=== PATIENT | female | born 1970 | race Caucasian/White ===

== ENCOUNTER 2019-01-14 16:29 | Outpatient (REF) | payer OTHER, SELFPAY ==
[2019-01-14 17:06] LABS: Anion Gap 12.2 mmol/L (3-11); BUN 10 mg/dL (7-18); CO2 25.8 mmol/L (21.0-32.0); CREATININE 1.13 mg/dL (0.55-1.02); Calcium 9.2 mg/dL (8.5-10.1); Chloride 99 mmol/L (98-107); Estimated GFR 51.39 (mL/min/1.73m2); Glucose 271 mg/dL (70-100); Potassium 4.1 mmol/L (3.5-5.1); Sodium 137 mmol/L (136-145)
== END 2019-01-14 16:49 ==
LOC: NCHCN 16:29
PROVIDERS: PCP Internal Medicine; Visit Provider Family Medicine
DX: I10 Essential (primary) hypertension (principal); R73.09 Other abnormal glucose
CPT/HCPCS: 80048

== ENCOUNTER 2019-01-22 12:51 | Outpatient (REF) | payer OTHER, SELFPAY | END 2019-01-22 13:11 | LOC: NCHCN 12:51 | PROVIDERS: PCP Internal Medicine; Visit Provider Family Medicine | DX: R73.9 Hyperglycemia, unspecified (principal) | CPT/HCPCS: 83036 ==

== ENCOUNTER 2019-02-15 00:47 | Outpatient (CLI) | payer OTHER, SELFPAY ==
--- NOTE | 2019-02-15 08:17 | NS.NUTBLAN_ITS ---
DESCRIPTION/ASSESSMENT:? Buffy King presents with newly diagnosed type 2 diabetes with focus on nutrition and prevention.? ?? She manages diabetes with 20u Lantus and Metformin. She plans to get off the insulin when blood sugars are well controlled.? She also takes HCTZ for hypertension.?? Buffy is eating an Atkins like food plan; eats egg, sausage and cheese with coffee and cream for breakfast; deli meat, cheese, avocado?and nuts for lunch; Atkins dinners or faux fried rice made from cauliflower, pork, lay sprouts.? SHe is eating no carbohydrate at this time. ?She has lost 15 pounds.? She does plan to add in fruit at some point. Buffy is physically active, loves to swim and bike.? She denies stress or poor sleep. Buffy is motivated to maintain her changes to manage her diabetes and feels she has the resources to do this. INTERVENTION:? Buffy has already made the changes to manage her blood sugars with food choices.? Reviewed diabetes food guide for if/when this current plan becomes unsustainable.? Discussed hunger/fullness. Discussed benefits of physical activity.? Discussed prevention i.e. foot care briefly and she is aware.? Discussed strategies for stress management. PLAN:? Buffy will continue her current food plan; medication and monitoring of blood sugars. She will be in touch as desired and has the contact information for self management support..
== END 2019-02-15 01:07 ==
PROVIDERS: PCP Family Medicine; Visit Provider Dietitian, Registered
DX: E11.9 Type 2 diabetes mellitus without complications (principal); Z71.3 Dietary counseling and surveillance
CPT/HCPCS: 97802

== ENCOUNTER 2019-02-27 09:18 | Outpatient (REF) | payer OTHER, SELFPAY ==
[2019-02-27 13:55] LABS: Anion Gap 9.7 mmol/L (3-11); BUN 17 mg/dL (7-18); CO2 29.3 mmol/L (21.0-32.0); CREATININE 1.04 mg/dL (0.55-1.02); Calcium 9.6 mg/dL (8.5-10.1); Chloride 101 mmol/L (98-107); Estimated GFR 56.56 (mL/min/1.73m2); Glucose 134 mg/dL (70-100); Potassium 4.1 mmol/L (3.5-5.1); Sodium 140 mmol/L (136-145)
== END 2019-02-27 09:38 ==
LOC: NCHCN 09:18
PROVIDERS: PCP Family Medicine; Visit Provider Family Medicine
DX: I10 Essential (primary) hypertension (principal); N28.9 Disorder of kidney and ureter, unspecified
CPT/HCPCS: 80048

== ENCOUNTER 2019-03-13 01:27 | Outpatient (CLI) | payer OTHER, SELFPAY ==
--- NOTE | 2019-03-13 07:50 | DI.MAMMO_ITS ---
EXAM: MAMMO SCREENING CLINICAL HISTORY: SCREENING, Z12.39 TECHNIQUE: Mammograms were interpreted according to the usual protocol including computer analysis w [employer] CAD system, tomosynthesis and C-view imaging. FINDINGS: The breasts are of moderate density with fairly symmetrical distribution of fibroglandular tissue. N o dominant mass or clumped microcalcification is identified in either breast. Today's examination is a baseline examination. IMPRESSION: No specific evidence of malignancy at this time. Routine screening examinations are suggested at yea rly intervals in this age group according to the ACS/ACR guidelines. Category 1, breast density categ ory B. BI-RADS Cat 1 - Negative Breast Density - Category B - Scattered areas of fibroglandular density
== END 2019-03-13 01:47 ==
PROVIDERS: PCP Family Medicine; Visit Provider Family Medicine
DX: Z12.31 Encounter for screening mammogram for malignant neoplasm of breast (principal)
CPT/HCPCS: 77063; 77067

== ENCOUNTER 2019-10-20 11:40 | Emergency (ER) | payer OTHER, SELFPAY ==
[2019-10-20 11:54] VITALS: BP 161/95; PULSE 71; RESP 18; TEMP 36.6; O2SAT 97
--- NOTE | 2019-10-20 12:18 | ED.GENADUL_ITS ---
Discharge Plan Disposition Patient Disposition: HOME Condition: Stable Discharge Details Chief Complaint: Nk/Back Pain Clinical Impression: Lumbago Primary Care Provider: Med Hlae ED Provider: Javier Kaur Home Meds and New Rx's Prescriptions: New methocarbamol 500 mg tablet 500 mg PO Q6H PRN (Reason: Back pain or spasm) Qty: 14 RF: 0 prednisone 20 mg tablet 40 mg PO DAILY 5 Days Qty: 10 RF: 0 Continued naproxen 250 mg Tablet 440 mg PO BID PRNRF: 0 metformin 1,000 mg Tablet Extended Release 24hr 1,000 mg PO DAILY RF: 0 valsartan-hydrochlorothiazide 320-25 mg Tablet 0.5 tab PO DAILY RF: 0 Discharge Instructions Instructions: Low Back Strain (ED) Additional Instructions: Remove Lidoderm patch in 12 hours time. Additional patches are available [id number]. Take prednisone as prescribed, next dose will be tomorrow. You may continue your prescribed naproxen and may also use Tylenol/acetaminophen as needed for pain. Methocarbamol as needed for breakthrough muscular pain. Return for weakness of the legs, urine incontinence, or any other acute concerns. Follow-up with regular doctor if not improving in 5 to 7 days time. Medical Decision Making Pleasant 49-year-old female presents with low back pain that began Monday while bending over to a shopping cart. Now radiates at times down the buttocks and both legs. No change to urine continence. No numbness, tingling, or weakness. Somewhat improved with ibuprofen at home. Her neuromotor examination is unremarkable. This is most consistent with sciatica and possibly a lower lumbar disc bulge. Discussed with her home management including the prescribed use of a burst of prednisone, methocarbamol as needed, Lidoderm patches, ongoing use of [id number] medications. She deferred a referral to physical therapy. She understands return precautions to the ER for recheck. She is stable at this time. HPI General Mode of arrival: ambulatory . Date/Time Provider Initiated Documentation: 10/20/19 11:43 . Limitations to Documentation: no limitations . Information obtained by: patient . History of Present Illness 49 year old F presents to the emergency department with the chief complaint of Low back pain since Monday. No change to urine, no weakness or numbness of, described as moderate, Quality is described as constant, and is localized to the back. Patient extremity. Patient started experiencing this day(s) and it has been constant. Rest improves symptom(s), Movement worsens symptoms . Patient notes no other symptoms.; denies fever/chills, loss of appetite, syncope and weakness. Patient did receive the following treatments prior to arrival, NSAID Related Data Home Medications Medication Instructions Recorded Confirmed metformin 1,000 mg PO DAILY 10/20/19 10/20/19 methocarbamol 500 mg PO Q6H PRN #14 tab 10/20/19 naproxen 440 mg PO BID PRN 10/20/19 10/20/19 prednisone 40 mg PO DAILY 5 Days #10 tab 10/20/19 valsartan-hydrochlorothiazide 0.5 tab PO DAILY 10/20/19 10/20/19 Previous Rx's Medication Instructions Recorded methocarbamol 500 mg PO Q6H PRN #14 tab 10/20/19 prednisone 40 mg PO DAILY 5 Days #10 tab 10/20/19 Allergies Allergy/AdvReac Type Severity Reaction Status Date / Time No Known Allergies Allergy Unverified 10/20/19 12:01 General Stated Complaint: Nk/Back Pain KANNAN: 3 Review of Systems Narrative: 6 systems reviewed and otherwise negative [facility] Medical History Anemia 01/2013 Hgb 11.3, MCV 79.3. 06/2013 after iron supplementation Hgb 11.7, MCV 84. Nl TIBC and Ferritin levels. Hyperlipidemia Kidney stone Obesity Premenopausal menorrhagia light regular menses until 10/2012 then regular but heavy. Nl EMBx and Nl SHG. Expectant management. Family History Mother Diabetes Social History Smoking/Tobacco Use Status: Former Tobacco Use Alcohol Intake: current Alcohol Intake frequency: 0-2 drinks per day Drug use: Never Substance use type: does not use Do you feel safe at home: Yes Do you feel safe in your relationship?: Yes Exam Narrative Exam Narrative: GEN: awake, alert, oriented 3. Pleasant, well groomed, interactive. HEAD: Normocephalic, atraumatic ENT: Mucous membranes moist, oropharynx unremarkable, External ear exam unremarkable EYES: PERRL, EOMI NECK: Full ROM, no ARIANE, no menigismus CHEST/RESP: Nontender, clear to auscultation bilateral, no wheeze/rhonchi/rales CARDIOVASCULAR: RRR, no murmur, rub chucky. 2+ Rad pulse bilateral Back: Lower lumbar discrete tenderness without step-off or deformity. Minimal bilateral sciatic notch tenderness to palpation. EXT: Full ROM, no edema, no rash. Motor 5 out of 5. Plantar and dorsiflexion normal. Sensation intact throughout. Patellar reflex 1+ bilaterally. Neuro: Grossly normal neurologic exam, conversant, interactive. Psych: Speech fluent, thoughts congruent, affect normal Course Vital Signs Vital signs: Vital Signs Temperature 36.6 C 10/20/19 11:54 Pulse 71 10/20/19 11:54 Respiratory Rate 18 10/20/19 11:54 Blood Pressure 161/95 H 10/20/19 11:54 Pulse Oximetry 97 10/20/19 11:54 Temperature 36.6 C 10/20/19 11:54 Temperature Source Temporal Artery Scan 10/20/19 11:54 Pulse 71 10/20/19 11:54 Respiratory Rate 18 10/20/19 11:54 Respiratory Effort Non-Labored 10/20/19 12:06 Blood Pressure 161/95 H 10/20/19 11:54 Blood Pressure Position Sitting 10/20/19 11:54 Pulse Oximetry 97 10/20/19 11:54 Oxygen Delivery Method Room Air 10/20/19 11:54 Oxygen Flow Rate 0 10/20/19 11:54 Pain Level 5 10/20/19 11:54
[2019-10-20] MEDS: Lidocaine 5% Patch 1 PATCH TP (12:30)
[2019-10-20] MEDS: predniSONE 20 MG TAB 60 MG PO (12:30)
== END 2019-10-20 12:40 | disposition home or self-care (01) ==
PROVIDERS: Emergency Provider Emergency Medicine; PCP Family Medicine
DX: M54.41 Lumbago with sciatica, right side (principal); M54.42 Lumbago with sciatica, left side
CPT/HCPCS: 99283; J7512

== ENCOUNTER 2020-02-19 21:25 | Outpatient (REF) | payer OTHER, SELFPAY ==
[2020-02-19 19:57] LABS: ALT 39 U/L (14-59); AST 29 U/L (15-37); Albumin 3.9 g/dL (3.4-5.0); Alkaline Phosphatase 80 U/L (46-116); BUN 25 mg/dL (7-18); Bilirubin, Total 0.4 mg/dL (0.2-1.0); CREATININE 1.38 mg/dL (0.55-1.02); Calcium 9.8 mg/dL (8.5-10.1); Calculated LDL 240 mg/dL (<100); Chloride 103 mmol/L (98-107); Cholesterol 338 mg/dL (<200); Estimated GFR 40.64 (mL/min/1.73m2); Glucose 147 mg/dL (74-106); HDL Cholesterol 54 mg/dL (40-60); Potassium 4.5 mmol/L (3.5-5.1); Sodium 140 mmol/L (136-145); Total Protein 7.6 g/dL (6.4-8.2); Triglyceride 220 mg/dL (<150)
== END 2020-02-19 21:45 ==
LOC: NCHCN 21:25
PROVIDERS: PCP Family Medicine; Visit Provider Family Medicine
DX: E11.9 Type 2 diabetes mellitus without complications (principal)
CPT/HCPCS: 80053; 80061

== ENCOUNTER 2020-06-04 13:37 | Outpatient (REF) | payer OTHER, SELFPAY ==
[2020-06-04 16:02] LABS: Anion Gap 10.9 mmol/L (3-11); BUN 24 mg/dL (7-18); CO2 26.1 mmol/L (21.0-32.0); CREATININE 1.2 mg/dL (0.55-1.02); Calcium 9.4 mg/dL (8.5-10.1); Calculated LDL 210 mg/dL (<100); Chloride 101 mmol/L (98-107); Cholesterol 316 mg/dL (<200); Estimated GFR 47.55 (mL/min/1.73m2); Glucose 148 mg/dL (74-106); HDL Cholesterol 52 mg/dL (40-60); Potassium 4.4 mmol/L (3.5-5.1); Sodium 138 mmol/L (136-145); Triglyceride 273 mg/dL (<150)
== END 2020-06-04 13:38 | disposition home or self-care (01) ==
LOC: NCHCN 13:37
PROVIDERS: PCP Family Medicine; Visit Provider Family Medicine
DX: E11.9 Type 2 diabetes mellitus without complications (principal); N28.9 Disorder of kidney and ureter, unspecified; E78.5 Hyperlipidemia, unspecified
CPT/HCPCS: 80048; 80061

== ENCOUNTER 2020-11-17 02:30 | Outpatient (CLI) | payer OTHER, SELFPAY ==
--- NOTE | 2020-11-17 | DI.MAMMO_ITS ---
Exam(s) MAMMO SCREENING EXAM: MAMMO SCREENING CLINICAL HISTORY: SCREENING, PREVENTIVE CARE EXAM, Z00.00 TECHNIQUE: Mammograms were interpreted according to the usual protocol including computer analysis w [employer] CAD system, tomosynthesis and C-view imaging. COMPARISON: FINDINGS: The breasts are of moderate density with fairly symmetrical distribution of fibroglandular tissue. N o dominant mass or clumped microcalcification is identified in either breast. The current examinatio n is compared with previous examination of February 2019 and there has been no gross interval change in appearance in comparison with the prior study. IMPRESSION: No specific evidence of malignancy at this time. Routine screening examinations are suggested at yea rly intervals in this age group according to the ACS ACR guidelines. BI-RADS Category 1 - Negative Breast Density - Category B - Scattered areas of fibroglandular density
== END 2020-11-17 02:50 ==
PROVIDERS: PCP Family Medicine; Visit Provider Family Medicine
DX: Z00.00 Encounter for general adult medical examination without abnormal findings (principal); Z12.31 Encounter for screening mammogram for malignant neoplasm of breast
CPT/HCPCS: 77063; 77067

== ENCOUNTER 2021-05-28 12:49 | Outpatient (REF) | payer OTHER, SELFPAY ==
[2021-05-28 15:10] LABS: Hemoglobin A1C 6.6 % (<5.7)
[2021-05-28 15:15] LABS: Anion Gap 8.1 mmol/L (3-11); BUN 15 mg/dL (7-18); CO2 27.9 mmol/L (21.0-32.0); CREATININE 1.1 mg/dL (0.55-1.02); Calcium 9.5 mg/dL (8.5-10.1); Calculated LDL 121 mg/dL (<100); Chloride 103 mmol/L (98-107); Cholesterol 206 mg/dL (<200); Estimated GFR 52.36 (mL/min/1.73m2); Glucose 183 mg/dL (74-106); HDL Cholesterol 49 mg/dL (40-60); Potassium 4.9 mmol/L (3.5-5.1); Sodium 139 mmol/L (136-145); Triglyceride 183 mg/dL (<150)
== END 2021-05-28 12:50 | disposition home or self-care (01) ==
LOC: NCHCN 12:49
PROVIDERS: PCP Family Medicine; Visit Provider Family Medicine
DX: E78.5 Hyperlipidemia, unspecified (principal); E11.9 Type 2 diabetes mellitus without complications
CPT/HCPCS: 80048; 80061; 83036

== ENCOUNTER 2021-11-24 16:45 | Outpatient (REF) | payer OTHER, SELFPAY ==
[2021-11-24 17:49] LABS: Anion Gap 11.9 mmol/L (3-11); BUN 31 mg/dL (7-18); CO2 26.1 mmol/L (21.0-32.0); CREATININE 1.5 mg/dL (0.55-1.02); Calcium 9.4 mg/dL (8.5-10.1); Chloride 102 mmol/L (98-107); Estimated GFR 36.61 (mL/min/1.73m2); Glucose 184 mg/dL (74-106); Potassium 4.7 mmol/L (3.5-5.1); Sodium 140 mmol/L (136-145); Vitamin B12 258 pg/mL (193-986)
== END 2021-11-24 16:46 | disposition home or self-care (01) ==
LOC: NCHCN 16:45
PROVIDERS: PCP Family Medicine; Visit Provider Family Medicine
DX: R20.2 Paresthesia of skin (principal)
CPT/HCPCS: 80048; 82607; 83735

== ENCOUNTER 2021-12-10 18:48 | Outpatient (REF) | payer OTHER, SELFPAY ==
[2021-12-10 17:38] LABS: COMMENT (LAB VIEW ONLY) 244.42 mg/dL; PROTEIN 29.9 mg/dL; Prot/Crea Ur Ratio 0.12
== END 2021-12-10 18:49 | disposition home or self-care (01) ==
LOC: NCHCN 18:48
PROVIDERS: PCP Family Medicine; Visit Provider Family Medicine
DX: N28.9 Disorder of kidney and ureter, unspecified (principal)
CPT/HCPCS: 82565; 84156

== ENCOUNTER 2022-06-08 11:27 | Outpatient (REF) | payer OTHER, SELFPAY ==
[2022-06-08 15:06] LABS: Anion Gap 6.6 mmol/L (3-11); BUN 17 mg/dL (7-18); CO2 30.4 mmol/L (21.0-32.0); CREATININE 1.3 mg/dL (0.55-1.02); Calcium 9.9 mg/dL (8.5-10.1); Chloride 97 mmol/L (98-107); Estimated GFR 49.48 (mL/min/1.73m2); Glucose 268 mg/dL (74-106); Potassium 4.3 mmol/L (3.5-5.1); Sodium 134 mmol/L (136-145)
== END 2022-06-08 11:28 | disposition home or self-care (01) ==
LOC: NCHCN 11:27
PROVIDERS: PCP Family Medicine; Visit Provider Family Medicine
DX: N28.9 Disorder of kidney and ureter, unspecified (principal)
CPT/HCPCS: 80048

== ENCOUNTER 2022-12-08 10:15 | Outpatient (REF) | payer OTHER, SELFPAY ==
--- NOTE | 2022-12-08 10:00 | PAPFT_PTH ---
PATIENT: Nhi King LOC: [facility] U#:[id number] AGE/SX: 52/F ROOM: RE12/08/[address]: Med Hale : 1970 BED: DIS: 12/08/2022 SPEC #: [id number] RECD: 12/08/22 18:19 STATUS: SALINA REQ #: [id number] DARLEEN: 12/08/22 10:[address]: Med Hale DEPT: [facility] Cytology RECD BY: Megan Gomes Tissues: 1 - CX/ENDOCX FOR PAP SMEARS Procedures: PAP THIN PREP/UVM Screening Comments: [id number]
[2022-12-08 17:52] LABS: Anion Gap 10.8 mmol/L (3-11); BUN 40 mg/dL (7-18); CO2 25.2 mmol/L (21.0-32.0); CREATININE 1.5 mg/dL (0.55-1.02); Calcium 9.6 mg/dL (8.5-10.1); Chloride 101 mmol/L (98-107); Estimated GFR 41.67 (mL/min/1.73m2); Glucose 200 mg/dL (74-106); Potassium 4.9 mmol/L (3.5-5.1); Sodium 137 mmol/L (136-145)
[2022-12-12 10:55] LABS: Hepatitis C Ab w Rflx HCV PCR Negative (Negative)
== END 2022-12-08 10:16 | disposition home or self-care (01) ==
LOC: NCHCN 10:15
PROVIDERS: PCP Family Medicine; Visit Provider Family Medicine
DX: Z00.00 Encounter for general adult medical examination without abnormal findings (principal); N28.9 Disorder of kidney and ureter, unspecified; Z11.59 Encounter for screening for other viral diseases; Z12.4 Encounter for screening for malignant neoplasm of cervix
CPT/HCPCS: 80048; 86803; 88142

== ENCOUNTER → 2023-02-21 00:39 | Outpatient (CLI) | payer OTHER, SELFPAY ==
--- NOTE | 2023-02-21 15:46 | DI.MAMMO_ITS ---
Exam(s) MAMMO SCREENING EXAM: MAMMO SCREENING CLINICAL HISTORY: SCREENING, Z12.39. TECHNIQUE: Bilateral full field digital CC and MLO mammographic images were obtained with 3D tomosyn thesis and utilizing computer aided detection (CAD). COMPARISON: Prior mammograms were reviewed. FINDINGS: There has been no significant change in the appearance and distribution of the fibroglandular tissue. Scattered benign-appearing microcalcifications are again noted in both breasts. There few new benign -appearing microcalcifications laterally in the left breast. There are no new spiculated masses nor malignant appearing microcalcification groups. There is no significant architectural distortion nor skin thickening-retraction. IMPRESSION: Benign findings. No radiographic evidence of malignancy. BI-RADS Category 2 - Benign Findings Breast Density - Category B - Scattered areas of fibroglandular density Breast density Category C or D implies that the patient has dense breast tissue. Dense breast tissue can make it harder to find cancer on a mammogram. Dense breast tissue is also associated with an incr eased risk of breast cancer. This information about the result of the mammogram report was provided to the patient to raise their awareness. Use this report when you speak with the patient about their risks for breast cancer, which includes their family history. At that time, you may recommend additional screening tests (Ultrasoun d or MRI) as these tests may add significant information. A negative radiographic report should not delay biopsy if a dominant or clinically suspicious mass is present. Up to ten percent of cancers are not identified on mammography. A negative report may reinforce clinical impression. Adenosis and dense breasts may obscure an underlying neoplasm. False positive reports average 6 to 10%. Patient will receive a letter notifying them of these results.
== END ==
PROVIDERS: PCP Family Medicine; Visit Provider Family Medicine
DX: Z12.31 Encounter for screening mammogram for malignant neoplasm of breast (principal); R92.323 Mammographic fibroglandular density, bilateral breasts
CPT/HCPCS: 77063; 77067

== ENCOUNTER 2023-06-09 21:21 | Outpatient (REF) | payer OTHER, SELFPAY ==
[2023-06-09 16:13] LABS: Anion Gap 11.3 mmol/L (3-11); BUN 39 mg/dL (7-18); CO2 28.7 mmol/L (21.0-32.0); CREATININE 1.3 mg/dL (0.55-1.02); Calcium 10.2 mg/dL (8.5-10.1); Calculated LDL 137 mg/dL (<100); Chloride 100 mmol/L (98-107); Cholesterol 225 mg/dL (<200); Estimated GFR 49.17 (mL/min/1.73m2); Glucose 224 mg/dL (74-106); HDL Cholesterol 58 mg/dL (40-60); Potassium 4.4 mmol/L (3.5-5.1); Sodium 140 mmol/L (136-145); Triglyceride 150 mg/dL (<150)
[2023-06-09 16:19] LABS: Hemoglobin A1C 7.7 % (<5.7)
== END 2023-06-09 21:22 | disposition home or self-care (01) ==
LOC: NCHCN 21:21
PROVIDERS: PCP Family Medicine; Visit Provider Family Medicine
DX: E78.5 Hyperlipidemia, unspecified (principal); E11.9 Type 2 diabetes mellitus without complications
CPT/HCPCS: 80048; 80061; 83036

== ENCOUNTER 2023-09-08 11:16 | Outpatient (REF) | payer OTHER, SELFPAY ==
[2023-09-08 16:44] LABS: COMMENT (LAB VIEW ONLY) 181.57 mg/dL; Microalb ug/mg Crea 29.6 ug/mg Cr
== END 2023-09-08 11:17 | disposition home or self-care (01) ==
LOC: NCHCN 11:16
PROVIDERS: PCP Family Medicine; Visit Provider Student in an Organized Health Care Education/Training Program
DX: E11.9 Type 2 diabetes mellitus without complications (principal)
CPT/HCPCS: 82043; 82570

== ENCOUNTER 2024-10-30 19:29 | Outpatient (REF) | payer OTHER, SELFPAY ==
[2024-10-30 23:57] LABS: COMMENT (LAB VIEW ONLY) 187.65 mg/dL; Microalb ug/mg Crea 24.9 ug/mg Cr
== END 2024-10-30 19:30 | disposition home or self-care (01) ==
LOC: NCHCN 19:29
PROVIDERS: PCP Student in an Organized Health Care Education/Training Program; Visit Provider Student in an Organized Health Care Education/Training Program
DX: E11.9 Type 2 diabetes mellitus without complications (principal); Z79.4 Long term (current) use of insulin
CPT/HCPCS: 82043; 82570

== ENCOUNTER → 2025-02-21 03:26 | Outpatient (CLI) | payer OTHER, SELFPAY ==
--- NOTE | 2025-02-21 | DI.MAMMO_ITS ---
Exam(s) MAMMO SCREENING EXAM: MAMMO SCREENING CLINICAL HISTORY: SCREENING MAMMO Z12.31 TECHNIQUE: Bilateral full field digital CC and MLO mammographic images were obtained with 3D tomosynthesis and utilizing computer aided detection (CAD). COMPARISON: Comparison is made with prior examinations. FINDINGS: Masses/Architectural Distortion: No suspicious masses or areas of architectural distortion are present. Microcalcifications: No suspicious pleomorphic-type are seen. Skin Thickening/Nipple Retraction: None. IMPRESSION: 1. No significant interval change with no specific features of malignancy noted. 2. Unless there is more urgent need, screening mammography is recommended, as per [employer] guidelines. BI-RADS Category 1 - Negative Breast Density - Category B - There are scattered areas of fibroglandular density. Breast density Category C or D implies that the patient has dense breast tissue. Dense breast tissue can make it harder to find cancer on a mammogram. Dense breast tissue is also associated with an increased risk of breast cancer. This information about the result of the mammogram report was provided to the patient to raise their awareness. Use this report when you speak with the patient about their risks for breast cancer, which includes their family history. At that time, you may recommend additional screening tests (Ultrasound or MRI) as these tests may add significant information. A negative radiographic report should not delay biopsy if a dominant or clinically suspicious mass is present. Up to ten percent of cancers are not identified on mammography. A negative report may reinforce clinical impression. Adenosis and dense breasts may obscure an underlying neoplasm. False positive reports average 6 to 10%. Patient will receive a letter notifying them of these results.
== END ==
PROVIDERS: PCP Student in an Organized Health Care Education/Training Program; Visit Provider Student in an Organized Health Care Education/Training Program
DX: Z12.31 Encounter for screening mammogram for malignant neoplasm of breast (principal)
CPT/HCPCS: 77063; 77067